=== PATIENT | female | born 1955 | race Caucasian/White ===

== ENCOUNTER 2023-07-19 05:55 | Inpatient (IN) | payer MEDICARE, OTHER, SELFPAY ==
[2023-07-16 10:03] LABS: Hemoglobin 14.9 g/dL (12.0-16.0); Mean Corp Hgb Conc. 33.9 g/dL (33.0-37.0); Mean Corpuscular Hgb 30.1 pg (27.0-31.0); Mean Corpuscular Volume 88.9 fL (81.0-99.0); Mean Platelet Volume 9.9 fL (7.4-10.4); Platelet Count 263 10^3/uL (130-400); Red Blood Cell Count 4.95 10^6/uL (4.20-5.40); White Blood Cell Count 7.1 10^3/uL (4.8-10.8)
[2023-07-16 10:32] LABS: ALT (SGPT) 16 U/L (0-35); AST (SGOT) 25 U/L (14-36); Albumin 4.2 g/dl (3.5-5.0); Alkaline Phosphatase 101 U/L (38-126); Blood Urea Nitrogen 17 mg/dl (7-17); Calcium 9.3 mg/dl (8.4-10.2); Carbon Dioxide 28 mmol/L (22-30); Chloride 105 mmol/L (98-107); Glucose 102 mg/dl (70-99); INR 1.01; PT 13.1 Sec (11.4-14.6); Potassium 3.9 mmol/L (3.5-5.1); Sodium 140 mmol/L (135-145); Total Bilirubin 0.7 mg/dl (0.2-1.3); Total Protein 7.3 g/dl (6.3-8.2); eGFR > 60.00
[2023-07-16 10:33] LABS: APTT 28.2 Sec (23.4-35.0)
[2023-07-16 12:01] LABS: Glycohemoglobin (HgbA1c) 5.9 % (4.0-5.6)
[2023-07-16 13:22] VITALS: BMI 30.5
[2023-07-19] VITALS (16 sets, daily range): BP systolic 10–154; BP diastolic 57–98; BMI 30.5
[2023-07-19] MEDS: ENTEREG 12 MG PO (06:31)
[2023-07-19] MEDS: TYLENOL 1000 MG PO (06:31)
[2023-07-19] MEDS: NORMOSOL-R 1000 IV (06:32)
[2023-07-19] MEDS: NEURONTIN 600 MG PO (06:32)
[2023-07-19] MEDS: HEPARIN 5000 UNITS SC (06:32)
[2023-07-19] MEDS: INVANZ 60 MG IV (07:27)
--- NOTE | 2023-07-19 12:35 | W.IMMPOSTOP ---
Addendum entered and electronically signed by Richard Ambriz MD 07/19/23 17:29:
Correction: right stent and one left stent removed at end of case.
Addendum entered and electronically signed by Richard Ambriz MD 07/19/23 13:04:
Consulting hospitalist for medical management.
Addendum entered and electronically signed by Richard Ambriz MD 07/19/23 13:03:
Patient's updated by me in waiting area.
Original Note:
Surgical Immed Post Op Note
-
Primary Surgeon: Lenin Ambriz MD
Assisting Surgeon: ULISES Perea; ULISES Kessler
Pre-op Diagnosis: 1) colostomy 2) history diverticulitis
Post-op Diagnosis: same
Procedure Performed: 1) robotic takedown colostomy 2) partial proctectomy (upper rectum) 3) flexible sigmoidoscopy
Anesthesia Type: general plus local
Specimen / Cultures: 1) colostomy 2) upper rectum
Estimated Blood Loss: 300 cc
Complications: no immediate
Operative Findings: 1) 2 left ureters 2) pelvic adhesions 3) narrow upper rectum
#19 Gurmeet in pelvis.
Shaw, ureteral stents (3), ureteral ICG by Dr. Kim. Right stent removed at end of case.
Will send to med surg.
[2023-07-19 13:14] LABS: % Basophils 0.3 % (0-2); % Immature Granulocytes 0.6 % (0-0.5); % Monocytes 1.7 % (1.7-9.3); % Neutrophils 89.4 % (42.2-75.2); Absolute Basophils 0.1 10^3/uL (0-0.2); Absolute Immature Granulocytes 0.1 10^3/uL (0-0.05); Absolute Lymphocytes 1.5 10^3/uL (1.2-3.4); Absolute Monocytes 0.3 10^3/uL (0.1-0.6); Hematocrit 39.3 % (37.0-47.0); Hemoglobin 13.8 g/dL (12.0-16.0); Mean Corp Hgb Conc. 35.1 g/dL (33.0-37.0); Mean Corpuscular Hgb 30.7 pg (27.0-31.0); Mean Corpuscular Volume 87.3 fL (81.0-99.0); Mean Platelet Volume 9.5 fL (7.4-10.4); Nucleated Red Blood Cells % 0 %; Platelet Count 259 10^3/uL (130-400); Red Cell Dist. Width 13.2 % (11.5-14.5); White Blood Cell Count 19.1 10^3/uL (4.8-10.8)
[2023-07-19 13:31] LABS: Blood Urea Nitrogen 10 mg/dl (7-17); Calcium 7.8 mg/dl (8.4-10.2); Carbon Dioxide 27 mmol/L (22-30); Chloride 105 mmol/L (98-107); Estimated Creatinine Clearance 73 ml/min; Glucose 152 mg/dl (70-99); Magnesium 2.3 mg/dl (1.6-2.3); Potassium 3.5 mmol/L (3.5-5.1); Sodium 138 mmol/L (135-145); eGFR > 60.00
--- NOTE | 2023-07-19 13:39 | CON.HOSP ---
Family Physician
-
Family Physician: Devaughn Valenzuela, DO
Chief Complaint
-
Management of medical problems
History of Present Illness
Patient is a 68-year-old female with past medical history of perforated diverticulitis s/p Romana resection in Dec 31, anxiety, essential hypertension, hyperlipidemia, hypothyroidism, currently treated infection, tubal ligation was brought in
electively for reversal of colostomy. Patient have an uneventful surgery and postoperatively hospitalist team were consulted for medical management. Postoperatively patient was sedated from anesthesia/pain medication and was not able to provide
any information. Information has been gathered from chart review. Patient apparently had an emergent proctosigmoidectomy/Romana resection in December 31 for perforated sigmoid diverticulitis. Patient had some problem of chronic constipation and
some abdominal pain although overall interim course remained uncomplicated. Patient was brought in today for elective reversal of colostomy by colorectal surgeon.
Medical History
Past Medical History
Past Medical History: Reports Other
Additional Past Medical History:
perforated diverticulitis s/p Romana resection in Dec 31, anxiety, essential hypertension, hyperlipidemia, hypothyroidism, currently treated infection, tubal ligation
Past Surgical History: Reports Other
Social History
Unable to obtain full social history at this time due to: Other (From chart review)
Tobacco: Non-smoker
Alcohol: None
Family History
Family History: Unable to Obtain
Allergies / Home Medications
Allergies reflects when Allergies were last updated in [facility].
Home Medications with original date entered in [facility]
Allergy/Medication List:
Allergies
Allergy/AdvReac Type Severity Reaction Status Date / Time
amoxicillin Allergy Unknown Verified 07/16/23 15:53
Beta-Blockers Allergy Swelling Verified 07/19/23 06:05
(Beta-Adrenergic Bloc
Home Medications
Bifidobacterium infantis 4 mg capsule (Align) 4 mg PO DAILY Supplement 12/28/22
Fish Oil 2 cap PO HS Supplement 12/28/22
Stool Softener 1 tab PO BID Constipation 12/28/22
alprazolam 1 mg tablet 1 mg PO TID PRN anxiety 12/28/22
amlodipine 10 mg tablet 10 mg PO DAILY Blood Pressure 12/28/22
aspirin 81 mg tablet,delayed release 81 mg PO DAILY Blood Clot Prevention/Tx 12/28/22
atorvastatin 10 mg tablet 10 mg PO HS High Cholesterol 12/28/22
coenzyme Q10 200 mg capsule (Co Q-10) 200 mg PO HS Supplement 12/28/22
folic acid 800 mcg tablet 0.8 mg PO DAILY Supplement 12/28/22
indapamide 1.25 mg tablet 1.25 mg PO DAILY Blood Pressure 12/28/22
levothyroxine 75 mcg tablet 75 mcg PO DAILY Thyroid 12/28/22
methylphenidate HCl 20 mg tablet 20 mg PO BID PRN focus 12/28/22
metronidazole 500 mg tablet 500 mg PO .1400.1500.0 07/16/23
neomycin 500 mg tablet 1,000 mg PO .1400.1500.0 07/16/23
Review of Systems
-
Unable to obtain full review of systems at this time due to: Patient Non-verbal (Sedated )
Physical Exam
Vital Signs
Vital Signs
Temp Pulse Resp BP Pulse Ox
98.1 F 83 11 100/59 96
07/19/23 12:52 07/19/23 13:15 07/19/23 13:15 07/19/23 13:00 07/19/23 13:15
Physical Exam
General: Comfortable; Negative Respiratory Distress
HEENT: Oxygen
Respiratory: Clear
Cardiac: S1/S2 and Regular Rhythm; Negative Tachycardia or Murmur
GI: Soft and Other (Right flank BENY drain, LUQ dressing in place); Negative Normal Bowel Sounds
Musculoskeletal: No Edema
Neuro: Negative Awake, Alert or Oriented
Laboratory Results
-
Laboratory Results
07/19/23 13:08
07/19/23 13:08
PT 13.1 Sec (11.4-14.6) 07/16/23 09:26
INR 1.01 07/16/23 09:26
APTT 28.2 Sec (23.4-35.0) 07/16/23 09:26
Total Bilirubin 0.7 mg/dl (0.2-1.3) 07/16/23 09:
AST 25 U/L (14-36) 07/16/23 09:
ALT 16 U/L (0-35) 07/16/23 09:26
Alkaline Phosphatase 101 U/L (38-126) 07/16/23 09:26
Impression / Plan
-
1. s/p revesal of colostomy
h/o perforated diverticulitis s/p Lima resection in Dec 31
-patient sedated on post op eval from anesthesia/pain meds
-Abd exam - absent bowel sounds, Right flank BENY drain in place, left UQ dressing at previous colostomy site
-maintain NPO
-Pain meds/IVF/anti-emetics ordered
-Further post op care per CRS
2. Essential HTN
-BP soft and will hold meds for now
-May need IVF bolus if SBP < 100, continue monitoring
3. Leukocytosis w/o fever
- possibly reactive, got pre-op ertapenem,
- if episode spiking high-grade fever will require blood culture/abx
4. Anx/depression
-Continue back on Xanax 1 mg 3 times daily, will be judicious with use as patient currently sedated
5. Hypothyroidism
-Maintain on levothyroxine, once cleared to take meds by surgical team
DVT PPX - heparin subq from AM
Full code
Total time spent : 78 mins
I personally saw and examined the patient.
I have reviewed all diagnostic interpretations and treatment plans as written.
Time includes patient management by me, time spent at the patients bedside, time to review lab and imaging results, discussing patient care, documentation in the medical record, and time spent with the family or caregiver and discussing care plan
with RN/Consultants.
--- NOTE | 2023-07-19 13:46 | SUR.PHASEI ---
patient in pacu at 1252 - arrived sedate and remains sedate at this time, unresponsive to voice or tactile stimuli,. vss, labs sent and results to Dr Ambriz - no treatment at this time.
[2023-07-19] MEDS: TORADOL 10 MG IV ×3 (14:31→23:18)
--- NOTE | 2023-07-19 15:49 | PTCARENOTE ---
Received patient from PACU in bed; Patient currently on 2L nasal cannula; IVF infusing; Surgical site, drain, and jones assessed with SMT TECHNICIAN; Patient drowsy - arouses to voice, able to answer questions; Patient oriented to self, date, and place;
Denies pain at this current moment; Spouse at bedside; Call birch within reach; Patient and spouse oriented to unit and call birch use; Bed in lowest position, wheels locked; Safety maintained
[2023-07-19] MEDS: TYLENOL PO (16:12)
[2023-07-19] MEDS: D5LR 1000 IV ×2 (16:13→23:17)
[2023-07-19] MEDS: MORPHINE SULFATE 2 MG IV ×2 (19:34→23:18)
[2023-07-19] MEDS: ZOFRAN 4 MG IV (19:35)
[2023-07-19] MEDS: TYLENOL 650 MG PO ×2 (19:36→23:20)
[2023-07-19] MEDS: LIPITOR 10 MG PO (21:21)
[2023-07-20] VITALS (8 sets, daily range): BP systolic 94–126; BP diastolic 43–68; PULSE 89; O2SAT 96; BMI 30.6
[2023-07-20] MEDS: MORPHINE SULFATE 2 MG IV ×2 (03:58→09:49)
[2023-07-20] MEDS: TYLENOL 650 MG PO ×6 (03:58→23:40)
[2023-07-20] MEDS: ZOFRAN 4 MG IV (03:58)
[2023-07-20 06:07] LABS: % Basophils 0.1 % (0-2); % Immature Granulocytes 0.5 % (0-0.5); % Lymphocytes 11.2 % (20.5-51.1); % Monocytes 6.6 % (1.7-9.3); % Neutrophils 81.6 % (42.2-75.2); Absolute Immature Granulocytes 0.1 10^3/uL (0-0.05); Absolute Lymphocytes 1.8 10^3/uL (1.2-3.4); Absolute Monocytes 1.1 10^3/uL (0.1-0.6); Hematocrit 34.3 % (37.0-47.0); Hemoglobin 11.6 g/dL (12.0-16.0); Mean Corp Hgb Conc. 33.8 g/dL (33.0-37.0); Mean Corpuscular Hgb 29.9 pg (27.0-31.0); Mean Corpuscular Volume 88.4 fL (81.0-99.0); Nucleated Red Blood Cells % 0 %; Platelet Count 221 10^3/uL (130-400); Red Blood Cell Count 3.88 10^6/uL (4.20-5.40); Red Cell Dist. Width 13.4 % (11.5-14.5)
[2023-07-20] MEDS: TORADOL 10 MG IV ×4 (06:08→23:41)
[2023-07-20] MEDS: SYNTHROID 75 MCG PO (06:09)
[2023-07-20 06:25] LABS: Blood Urea Nitrogen 9 mg/dl (7-17); Calcium 8.3 mg/dl (8.4-10.2); Carbon Dioxide 30 mmol/L (22-30); Chloride 103 mmol/L (98-107); Estimated Creatinine Clearance 84 ml/min; Glucose 130 mg/dl (70-99); Magnesium 2.4 mg/dl (1.6-2.3); Potassium 3.9 mmol/L (3.5-5.1); Sodium 140 mmol/L (135-145); eGFR > 60.00
[2023-07-20 07:13] LABS: Hepatitis C Antibody Negative (Negative)
[2023-07-20] MEDS: ENTEREG 12 MG PO ×2 (08:24→19:49)
[2023-07-20] MEDS: HEPARIN 5000 UNITS SC ×2 (08:24→19:49)
[2023-07-20] MEDS: PROTONIX 40 MG PO (08:24)
[2023-07-20] MEDS: ASPIR LOW (ENTERIC COATED) 81 MG PO (08:24)
[2023-07-20] MEDS: LOZOL 1.25 MG PO (08:26)
[2023-07-20] MEDS: NORVASC 10 MG PO (08:31)
[2023-07-20 09:46] LABS: Glucose - Point of Care 131 mg/dl (70-99)
[2023-07-20] MEDS: D5LR 1000 IV (09:57)
--- NOTE | 2023-07-20 10:10 | W.PN.CRS1 ---
Addendum entered and electronically signed by Richard Ambriz MD 07/20/23 14:31:
I saw and examined the patient.
The PA's note was reviewed and I agree with the note.
Comment:
Seen in a.m. with PA.
Admits to incisional discomfort. No nausea.
Vitals reasonable. White count 16. Hemoglobin 11.6. Electrolytes reasonable.
Abdomen mildly distended. Incisions clean dry and intact. BENY with serosanguineous output.
Trial clears.
Out of bed.
Jones until tomorrow morning.
Lovenox.
Original Note:
Today's Communication / Plan
-
clears
lovenox
continue jones until tomorrow
Assessment/Plan
-
POD#1 1) robotic takedown colostomy 2) partial proctectomy (upper rectum) 3) flexible sigmoidoscopy
1. Vital signs normal.
2. WBC 16.0, expected post surgery. Trend.
3. Lovenox for DVT prophylaxis. TEDS/SCDS in place.
4. Stent #2 removed at bedside. Continue jones until tomorrow AM.
5. OOB with PT.
6. Pain control: Tylenol/Toradol standing, Morphine PRN.
7. Advance to a clear liquid diet.
8. OR pathology pending.
9. Continue BENY drain until discharge.
Subjective Data
Subjective Data
Date of Service: July 20, 2023
Patient states she has no nausea or vomiting. Her pain is controlled. She denies nausea or vomiting. She has no complaints.
Objective Data
-
Vital Signs
Temp Pulse Resp BP Pulse Ox
98.7 F 74 16 125/65 94
07/20/23 07:30 07/20/23 08:31 07/20/23 07:30 07/20/23 08:31 07/20/23 07:30
Intake & Output
07/19/23 07/20/23 07/21/23
06:59 06:59 06:59
Intake Total 350 / 350 1200 / 1200
Output Total 385 / 385 380 / 380
Balance -35 / -35 820 / 820
Intake:
IV fluids (Total) 350 / 350 1200 / 1200
normosol 350 / 350
Output:
Drain Output (Total)
Abdomen
Dl-Ramey
Urine, Jones 375 / 375 350 / 350
Lab Results
07/20/23 05:07
07/20/23 05:07
Physical Exam
-
General: No Acute Distress and AOx3
Abdomen: Soft, Non Distended and Non Tender
Skin: Warm and Dry
Incision: Clear, Dry, Intact
--- NOTE | 2023-07-20 12:16 | W.PN.HOSP.TC ---
Today's Communication/Plan
-
diet per CRS
resume home meds
Assessment / Plan
Assessment / Plan
1. s/p revesal of colostomy
�� h/o perforated diverticulitis s/p Lima resection in Dec 31
-Further post op care per CRS
-BS minimally present, Diet per CRS
2. Essential HTN
-BP improved, continue norvasc/indapamide with holding parameter
3. Leukocytosis w/o fever
- possibly reactive, got pre-op ertapenem,
- if episode spiking high-grade fever will require blood culture/abx�
4. Anx/depression
-Continue back on Xanax 1 mg 3 times daily
5. Hypothyroidism
-Maintain on levothyroxine
�DVT PPX - heparin subq
Full code
Anticipated Discharge: 24 - 48 hours
Subjective/Interval History
-
Date of Service: July 20, 2023
Resting comfortably in bed
Denies of any problems overnight
Objective Data
-
Labs:
Laboratory Results
07/20/23
05:07
WBC 16.0 H
Hgb 11.6 L
Hct 34.3 L
Plt Count 221
Sodium 140
Potassium 3.9
Chloride 103
Carbon Dioxide 30
BUN 9
Creatinine 0.7
Glucose 130 H
Calcium 8.3 L
Vital Signs:
Vital Signs
Temp Pulse Resp BP Pulse Ox
98.7 F 74 16 125/65 94
07/20/23 07:30 07/20/23 08:31 07/20/23 07:30 07/20/23 08:31 07/20/23 07:30
I&O
07/19/23 07/20/23 07/21/23
06:59 06:59 06:59
Intake Total 350 / 350 1200 / 1200
Output Total 385 / 385 380 / 380
Balance -35 / -35 820 / 820
Review of Systems
-
Respiratory: Reports No Symptoms
Cardiac: Reports No Symptoms
Abdomen/GI: Reports Abdominal Pain; Denies Nausea or Vomiting
Physical Exam
-
General: Negative Appears in Distress
Respiratory: Clear to Auscultation
Cardiac: Regular Rhythm and S1/S2; Negative Murmur
GI: Soft, Nontender and Other (LUQ dressing in place, midline surgical scar, right flank BENY drain in place)
Neuro: Awake, Alert and No Motor Deficits
Psych: Calm
--- NOTE | 2023-07-20 13:46 | CM ---
Initial assessment completed with patient who lives with her in a 2 story condo with B/B on 1st floor, no steps to enter, Was independent [employer], drove, no DME or O2 in home, POA is . , son and friend are support system. Patient
has been treated for anxiety and depression with a psychologist off and on for years. No inpatient psychiatric hospitalizations. Pharmacy is [facility] in [place] and PCP is Dr. Devaughn Valenzuela in [place], [place]. Anticipate no needs at discharge,
patient will have friend stay with her as well as her .
[2023-07-20] MEDS: XANAX 1 MG PO ×2 (13:48→19:50)
[2023-07-20] MEDS: LOVENOX 40 MG SC (17:05)
[2023-07-20] MEDS: D5LR IV (19:50)
[2023-07-20] MEDS: LIPITOR 10 MG PO (20:01)
[2023-07-21] MEDS: TYLENOL 650 MG PO ×5 (03:16→19:46)
[2023-07-21] MEDS: XANAX 1 MG PO ×3 (03:16→19:50)
[2023-07-21] MEDS: TORADOL 10 MG IV ×3 (05:56→16:40)
[2023-07-21] MEDS: D5LR IV ×2 (05:56→13:14)
[2023-07-21] MEDS: SYNTHROID 75 MCG PO (05:57)
[2023-07-21 06:00] VITALS: BMI 29.8
[2023-07-21 06:13] LABS: % Basophils 0.3 % (0-2); % Eosinophils 0.7 % (0-6); % Immature Granulocytes 0.4 % (0-0.5); % Lymphocytes 26.2 % (20.5-51.1); % Monocytes 5.4 % (1.7-9.3); Absolute Eosinophils 0.1 10^3/uL (0-0.7); Absolute Immature Granulocytes 0.1 10^3/uL (0-0.05); Absolute Lymphocytes 3.1 10^3/uL (1.2-3.4); Absolute Monocytes 0.6 10^3/uL (0.1-0.6); Absolute Neutrophils 7.8 10^3/uL (1.4-6.5); Hematocrit 32.8 % (37.0-47.0); Mean Corp Hgb Conc. 33.5 g/dL (33.0-37.0); Mean Corpuscular Hgb 30.3 pg (27.0-31.0); Mean Corpuscular Volume 90.4 fL (81.0-99.0); Mean Platelet Volume 10.2 fL (7.4-10.4); Nucleated Red Blood Cells % 0 %; Platelet Count 213 10^3/uL (130-400); Red Blood Cell Count 3.63 10^6/uL (4.20-5.40); Red Cell Dist. Width 13.5 % (11.5-14.5); White Blood Cell Count 11.7 10^3/uL (4.8-10.8)
[2023-07-21 06:40] LABS: Blood Urea Nitrogen 7 mg/dl (7-17); Calcium 8.4 mg/dl (8.4-10.2); Carbon Dioxide 29 mmol/L (22-30); Chloride 106 mmol/L (98-107); Estimated Creatinine Clearance 83 ml/min; Glucose 84 mg/dl (70-99); Potassium 3.6 mmol/L (3.5-5.1); Sodium 140 mmol/L (135-145); eGFR > 60.00
[2023-07-21 07:42] VITALS: BP 114/61
[2023-07-21] MEDS: NORVASC 10 MG PO (08:43)
[2023-07-21] MEDS: LOZOL 1.25 MG PO (08:44)
[2023-07-21] MEDS: ENTEREG 12 MG PO ×2 (08:47→19:47)
[2023-07-21] MEDS: PROTONIX 40 MG PO (08:47)
[2023-07-21] MEDS: ASPIR LOW (ENTERIC COATED) 81 MG PO (08:47)
[2023-07-21] MEDS: HEPARIN 5000 UNITS SC (08:48)
--- NOTE | 2023-07-21 12:15 | W.PN.HOSP.TC ---
Today's Communication/Plan
-
continue current medical care
possible discharge in 24-48 hrs
Assessment / Plan
Assessment / Plan
1. s/p revesal of colostomy
�� h/o perforated diverticulitis s/p Lima resection in Dec 31
-Further post op care per CRS
-diet being advanced slowly bt CRS
-BENY drain to be removed at discharge
-No excessive pain/nausea/vomiting issues
-Ambulating without assistance
2. Essential HTN
-BP improved, continue norvasc/indapamide with holding parameter
3. Leukocytosis w/o fever - improving
- possibly reactive, got pre-op ertapenem,
- if episode spiking high-grade fever will require blood culture/abx�
4. Anx/depression
-Continue back on Xanax 1 mg 3 times daily
5. Hypothyroidism
-Maintain on levothyroxine
�DVT PPX - heparin subq
Full code
Anticipated Discharge: Within 24 hours
Subjective/Interval History
-
Date of Service: July 21, 2023
no complains overnight
had BM
denies abd pain/nausea/vomiting
Objective Data
-
Labs:
Laboratory Results
07/21/23
05:20
WBC 11.7 H
Hgb 11.0 L
Hct 32.8 L
Plt Count 213
Sodium 140
Potassium 3.6
Chloride 106
Carbon Dioxide 29
BUN 7
Creatinine 0.7
Glucose 84
Calcium 8.4
Vital Signs:
Vital Signs
Temp Pulse Resp BP Pulse Ox
97.8 F 69 18 114/61 91
07/21/23 07:42 07/21/23 07:42 07/21/23 07:42 07/21/23 08:44 07/21/23 08:45
I&O
07/20/23 07/21/23 07/22/23
06:59 06:59 06:59
Intake Total 350 / 350 2280 / 2280 120 / 120
Output Total 385 / 385 4165 / 4165 250 / 250
Balance -35 / -35 -1885 / -1885 -130 / -130
Review of Systems
-
Respiratory: Reports No Symptoms
Cardiac: Reports No Symptoms
Abdomen/GI: Reports No Symptoms
Physical Exam
-
General: Negative Appears in Distress
Respiratory: Clear to Auscultation
Cardiac: Regular Rhythm and S1/S2; Negative Murmur
GI: Soft, Nontender, Normal Bowel Sounds and Other (LUQ dressing in place, midline surgical scar, right flank BENY drain in place)
Neuro: Awake, Alert and No Motor Deficits
Psych: Calm
--- NOTE | 2023-07-21 12:16 | W.PN.CRS1 ---
Addendum entered and electronically signed by Gideon Benítez MD 07/21/23 12:28:
I saw and examined the patient.
The Reception's note was reviewed and I agree with the note.
Comment: Doing well. Exam appropriate. Bowel function returning. Plan to start LRD, and likely ready for DC when tolerating. Plan to DC drain prior to DC home.
Original Note:
Today's Communication / Plan
-
Advance diet
Assessment/Plan
-
68 yo female with h/o colostomy now POD#1 1) robotic takedown colostomy 2) partial proctectomy (upper rectum) 3) flexible sigmoidoscopy with stent placement by urology
AFVSS
Labs stable with WBC normalizing. Mild post operative anemia present and stable secondary to expected intraop losses and fluid shifts. BENY with light SS fluid.
Voiding since removal of jones
+BM/Flatus today
--Advance to LRD
--Tylenol, Toradol, Oxyocodone for pain
--OOB with PT
--OR pathology pending
--Continue home meds
--Lovenox 40mg SQ for VTE ppx
--Continue BENY drain until discharge.
--Discharge later today vs tomorrow pending diet tolerance and patient course
Subjective Data
Procedure
07/19/23
1. Robotic colostomy takedown.
2. Partial proctectomy (upper rectum).
3. Flexible sigmoidoscopy.
4. Cystoscopy, bilateral ureteral stent
placement for intraoperative ureteral identification.
Subjective Data
Date of Service: July 21, 2023
Patietn seen and examined at bedside with Dr. Benítez. Denies n/v. Tolerated liquids well. Passing flatus/small stool. Voided since catheter removed. Pain well managed.
Objective Data
-
Vital Signs
Temp Pulse Resp BP Pulse Ox
97.8 F 69 18 114/61 91
07/21/23 07:42 07/21/23 07:42 07/21/23 07:42 07/21/23 08:44 07/21/23 08:45
Intake & Output
07/20/23 07/21/23 07/22/23
06:59 06:59 06:59
Intake Total 350 / 350 2280 / 2280 120 / 120
Output Total 385 / 385 4165 / 4165 250 / 250
Balance -35 / -35 -1885 / -1885 -130 / -130
Intake:
Oral fluids 780 / 780 120 / 120
IV fluids (Total) 350 / 350 1500 / 1500
normosol 350 / 350
Output:
Drain Output (Total)
Abdomen
Dl-Ramey
Urine, Jones 375 / 375 4100 / 4100
Urine, Voided 250 / 250
Lab Results
07/21/23 05:20
07/21/23 05:20
Physical Exam
-
General: No Acute Distress and AOx3
Abdomen: Soft, Non Distended and Non Tender
Skin: Warm and Dry
Incision: Clear, Dry, Intact and Other (BENY with SSF)
[2023-07-21 15:10] VITALS: BP 107/58
[2023-07-21] MEDS: LOVENOX 40 MG SC (16:39)
--- NOTE | 2023-07-21 17:12 | PTCARENOTE ---
Addendum entered by Emily Albert RN 07/21/23 17:55:
When TT with Dr. De Adna he did understand per pharmacy that pt received both Lovenox and Heparin toady (yesterday) per my and his discussion and again would receive Heparin at 2000 after receiving Lovenox at 1800, so pharmacy called and followed up
with him to clarify that he still would like Heparin administered. All is now clarified. New orders. Not administering Heparin, stopping. Will give Lovenox only starting tomorrow. Pharmacy placing incident report.
Original Note:
TT with Dr. De Anda that pt on Lovenox and Heparin, which would they like to continue. Advise to put Lovenox on Hold.
[2023-07-21] MEDS: LIPITOR 10 MG PO (19:50)
[2023-07-21 23:00] VITALS: BP 104/61
[2023-07-22] MEDS: TYLENOL 650 MG PO ×2 (00:05→09:30)
[2023-07-22] MEDS: TORADOL 10 MG IV ×2 (00:05→06:00)
[2023-07-22] MEDS: FLUSH (NSS) 1 FLUSH IV ×2 (00:06→06:00)
[2023-07-22] MEDS: XANAX 1 MG PO ×2 (03:13→09:35)
[2023-07-22] MEDS: TYLENOL PO (03:54)
[2023-07-22] MEDS: SYNTHROID 75 MCG PO (05:59)
[2023-07-22 06:00] VITALS: BMI 29.9
[2023-07-22 07:28] VITALS: BP 103/71
[2023-07-22 08:59] LABS: Blood Urea Nitrogen 14 mg/dl (7-17); Calcium 8.8 mg/dl (8.4-10.2); Carbon Dioxide 32 mmol/L (22-30); Chloride 106 mmol/L (98-107); Estimated Creatinine Clearance 83 ml/min; Glucose 93 mg/dl (70-99); Potassium 3.6 mmol/L (3.5-5.1); Sodium 140 mmol/L (135-145); eGFR > 60.00
[2023-07-22] MEDS: LOZOL 1.25 MG PO (09:29)
[2023-07-22] MEDS: PROTONIX 40 MG PO (09:29)
[2023-07-22] MEDS: ENTEREG 12 MG PO (09:29)
[2023-07-22] MEDS: ASPIR LOW (ENTERIC COATED) 81 MG PO (09:30)
[2023-07-22] MEDS: NORVASC 10 MG PO (09:31)
--- NOTE | 2023-07-22 11:22 | W.PN.HOSP.TC ---
Today's Communication/Plan
-
sign off
discharge home per Surgical team
Assessment / Plan
Assessment / Plan
1. s/p revesal of colostomy
�� h/o perforated diverticulitis s/p Liam resection in Dec 31
-Further post op care per CRS
-diet being advanced slowly bt CRS
-BENY drain to be removed at discharge
-Tolerating LR diet.
-Ambulating without assistance
2. Essential HTN
-BP improved, continue norvasc/indapamide with holding parameter
3. Leukocytosis w/o fever - improving
- possibly reactive, got pre-op ertapenem,
- if episode spiking high-grade fever will require blood culture/abx�
4. Anx/depression
-Continue back on Xanax 1 mg 3 times daily
5. Hypothyroidism
-Maintain on levothyroxine
�DVT PPX - heparin subq
Full code
Medically stable for discharge. No change in home medication from IM service.
Will sign off, thank you for involving us in patient care and call back with any questions.
Anticipated Discharge: Today
Subjective/Interval History
-
Date of Service: July 22, 2023
tolerating diet well
no abd pain./nausea/vomiting
Objective Data
-
Labs:
Laboratory Results
07/22/23
08:21
Sodium 140
Potassium 3.6
Chloride 106
Carbon Dioxide 32 H
BUN 14
Creatinine 0.7
Glucose 93
Calcium 8.8
Vital Signs:
Vital Signs
Temp Pulse Resp BP Pulse Ox
97.9 F 76 14 103/71 94
07/22/23 07:28 07/22/23 07:28 07/22/23 07:28 07/22/23 07:28 07/22/23 07:28
I&O
07/21/23 07/22/23 07/23/23
06:59 06:59 06:59
Intake Total 2280 / 2280 1280 / 1280 360 / 360
Output Total 4165 / 4165 475 / 475
Balance -1885 / -1885 805 / 805 360 / 360
Review of Systems
-
Respiratory: Reports No Symptoms
Cardiac: Reports No Symptoms
Abdomen/GI: Reports No Symptoms
Physical Exam
-
General: Negative Appears in Distress
Respiratory: Clear to Auscultation
Cardiac: Regular Rhythm and S1/S2; Negative Murmur
GI: Soft, Nontender, Normal Bowel Sounds and Other (LUQ dressing in place, midline surgical scar, right flank BENY drain in place)
Neuro: Awake, Alert and No Motor Deficits
Psych: Calm
--- NOTE | 2023-07-22 11:55 | W.PN.GS2 ---
Addendum entered and electronically signed by Gideon Benítez MD 07/22/23 12:27:
I saw and examined the patient.
The Financial Accounting Manager's note was reviewed and I agree with the note.
Comment: No complaints. Exam benign. Robert and drain removed. Wound care instructions discussed with pt and . DC home
Original Note:
Today's Communication / Plan
-
Dispo planning
Assessment / Plan
-
68 yo female with h/o colostomy now POD#3 1) robotic takedown colostomy 2) partial proctectomy (upper rectum) 3) flexible sigmoidoscopy with stent placement by urology
AFVSS
Labs stable
Tolerating diet with +BM/Flatus. Voiding.
--Continue LRD
--Tylenol, Toradol, Oxycodone for pain
--OOB with PT, cleared for home
--OR pathology pending
--Continue home meds
--Lovenox 40mg SQ for VTE ppx
--BENY and Robert removed
--Discharge to home
Subjective Data
-
Date of Service: July 22, 2023
Patient seen and examined at bedside with Dr. Benítez. Denies n/v. Tolerating diet. Eager to return home. Pain is well managed.
Objective Data
-
Intake and Output
07/21/23 07/22/23 07/23/23
06:59 06:59 06:59
Intake Total 2280 / 2280 1280 / 1280 360 / 360
Output Total 4165 / 4165 475 / 475
Balance -1885 / -1885 805 / 805 360 / 360
Intake:
Oral fluids 780 / 780 1280 / 1280 360 / 360
IV fluids (Total) 1500 / 1500
Output:
Drain Output (Total) 65 / 65 25 / 25
Héctor 65 / 65
Urine, Shaw 4100 / 4100
Urine, Voided 450 / 450
Other:
Number of approximated SMALL 3
amounts of urine
Number of approximated MODERATE 3
amounts of urine
Number of approximated LARGE 2
amounts of urine
Number of unmeasured liquid
stools
Rectum 2 1
Vital Signs
Temp Pulse Resp BP Pulse Ox
97.9 F 76 14 103/71 94
07/22/23 07:28 07/22/23 07:28 07/22/23 07:28 07/22/23 07:28 07/22/23 07:28
Lab Results
07/21/23 05:20
07/22/23 08:21
Calcium 8.8 mg/dl (8.4-10.2) 07/22/23 08:21
Magnesium 2.4 mg/dl (1.6-2.3) H 07/20/23 05:07
Total Bilirubin 0.7 mg/dl (0.2-1.3) 07/16/23 09:26
AST 25 U/L (14-36) 07/16/23 09:26
ALT 16 U/L (0-35) 07/16/23 09:26
Alkaline Phosphatase 101 U/L (38-126) 07/16/23 09:26
Total Protein 7.3 g/dl (6.3-8.2) 07/16/23 09:26
Albumin 4.2 g/dl (3.5-5.0) 07/16/23 09:26
Physical Exam
-
Gen: NAD
HEENT: NGT clamped
Abd: obese, soft, NT, non-peritoneal. Robert removed, chantelle intact to RUQ incision. BENY with light SSF (removed)
--- NOTE | 2023-07-22 12:45 | W.DCSUMMARY ---
Discharge Summary
Discharge Data
Date of Admission: 07/19/23
Date of Discharge: 07/22/23
-
Pending Results: No
Hospital Course
68 yo female with history of perforated sigmoid diverticulitis status post Romana's resection who presented this admission for colostomy reversal. She underwent a robotic colostomy takedown with partial proctectomy which was done without
complication. BENY drain was left in place post procedure and removed prior to discharge. She was able to have her diet slowly advanced post operatively and well tolerated. She had return of bowel function prior to discharge and good control of pain.
She was discharged to home with spouse with outpatient follow up planned in the coming weeks.
Discharge Plan
-
Patient Disposition: Home (Routine Discharge)
Discharge Diagnosis/Procedures: 1) robotic takedown colostomy 2) partial proctectomy (upper rectum) 3) flexible sigmoidoscopy
Condition: Good
Diet: Low Residue
Activity: No strenuous activity
Additional Activity: No lifting over 10lbs (gallon of milk)
Driving Restrictions: Not until seen by your Dr
Bathing Restrictions: OK to Shower
Wound Care: Allow glue to naturally fall off. Do not pick at incisions.
Cover BENY drain site with 4x4 gauze and tape to protect clothing until it seals in a few days.
Instructions: Low Fiber Diet
Referrals:
Richard Ambriz MD [Active] - in two weeks
Devaughn Valenzuela DO [Family Provider] -
Prescriptions:
New
acetaminophen [acetaminophen] 325 mg tablet
650 mg PO Q4HPRN PRN (Reason: mild pain) Qty: 1 0RF
ibuprofen 200 mg tablet
400 - 600 mg PO Q6HPRN PRN (Reason: moderate pain) Qty: 1 0RF
oxycodone 5 mg tablet
5 mg PO Q4HPRN PRN (Reason: breakthrough/severe pain) Qty: 15 0RF
Continued
atorvastatin 10 mg tablet
10 mg PO HS
alprazolam 1 mg tablet
1 mg PO TID PRN (Reason: anxiety)
Patient Comments:
12/28/2022: last filled 11/08/22, 270 tabs for 90 days from [facility]20[facility]
methylphenidate HCl 20 mg tablet
20 mg PO BID PRN (Reason: focus)
Patient Comments:
12/28/2022: last filled 05/15/22, 60 tabs for 30 days from [facility]
aspirin 81 mg Tablet,Delayed Release (Dr/Ec)
81 mg PO DAILY
levothyroxine 75 mcg tablet
75 mcg PO DAILY
amlodipine 10 mg tablet
10 mg PO DAILY
indapamide 1.25 mg tablet
1.25 mg PO DAILY
folic acid 800 mcg Tablet
0.8 mg PO DAILY
coenzyme Q10 [Co Q-10] 200 mg Capsule
200 mg PO HS
Align 4 mg Capsule
4 mg PO DAILY
Fish Oil
2 cap PO HS
Stool Softener
1 tab PO BID
Discontinued
metronidazole 500 mg Tablet
500 mg PO .
neomycin 500 mg Tablet
1,000 mg PO .0
Rx Instructions:
Pre medication for bowel surgery
Discharge Orders:
Discharge Patient (As Directed); Ordered 07/22/23
Ordered By: Guerline Xie
Discharge Date and Time
Discharge Date/Time: 07/22/23 12:30
--- NOTE | 2023-07-22 14:02 | CM ---
Pt for dc today.
IMM signed and on chart
Pt for dc today with no needs identified.
== END 2023-07-22 12:30 | disposition home or self-care (01) | DRG 333 ==
LOC: 2 SOUTH 05:55
PROVIDERS: Physician Assistant; Urology; ADMITTING PHYSICIAN Surgery; CONSULT PHYSICIAN Hospitalist; FAMILY PHYSICIAN Family Medicine
PROC: 0T788DZ Dilation of Bilateral Ureters with Intraluminal Device, Via Natural or Artificial Opening Endoscopic (ICD-10-PCS; 2023-07-19)
PROC: 0DBP4ZZ Excision of Rectum, Percutaneous Endoscopic Approach (ICD-10-PCS; 2023-07-19)
PROC: 8E0W4CZ Robotic Assisted Procedure of Trunk Region, Percutaneous Endoscopic Approach (ICD-10-PCS; 2023-07-19)
PROC: 0DSN4ZZ Reposition Sigmoid Colon, Percutaneous Endoscopic Approach (ICD-10-PCS; 2023-07-19)
PROC: 0DJD8ZZ Inspection of Lower Intestinal Tract, Via Natural or Artificial Opening Endoscopic (ICD-10-PCS; 2023-07-19)
DX: Z43.3 Encounter for attention to colostomy (principal); D62 Acute posthemorrhagic anemia; Q62.5 Duplication of ureter; D72.829 Elevated white blood cell count, unspecified; K62.89 Other specified diseases of anus and rectum; F41.9 Anxiety disorder, unspecified; F32.A Depression, unspecified; I10 Essential (primary) hypertension; E78.5 Hyperlipidemia, unspecified; E03.9 Hypothyroidism, unspecified; Z87.19 Personal history of other diseases of the digestive system; Z79.82 Long term (current) use of aspirin
CPT/HCPCS: 88304; 88307; 36415; 80048; 80053; 82962; 83036; 83735; 85025; 85027; 85610; 85730; 86803; 86850; 86900; 86901; 97162; 97530; A4300; C1769; J1335

== ENCOUNTER → 2024-08-01 11:09 | Outpatient (REF) | payer MEDICARE, OTHER, SELFPAY | LOC: HWRAD 11:09 | PROVIDERS: ATTENDING PHYSICIAN Internal Medicine Endocrinology, Diabetes & Metabolism; FAMILY PHYSICIAN Family Medicine | DX: E03.9 Hypothyroidism, unspecified (principal); E55.9 Vitamin D deficiency, unspecified; R73.03 Prediabetes; E66.811 Obesity, class 1; I10 Essential (primary) hypertension; Z13.820 Encounter for screening for osteoporosis; Z78.0 Asymptomatic menopausal state | CPT/HCPCS: 77080 ==

== ENCOUNTER → 2024-11-18 10:16 | Outpatient (REF) | payer MEDICARE, OTHER, SELFPAY | LOC: HWWDC 10:16 | PROVIDERS: ATTENDING PHYSICIAN Family Medicine | DX: Z12.31 Encounter for screening mammogram for malignant neoplasm of breast (principal) | CPT/HCPCS: 77063; 77067 ==

== ENCOUNTER → 2025-05-21 07:57 | Outpatient (REF) | payer MEDICARE, OTHER, SELFPAY | LOC: RAD 07:57 | PROVIDERS: ATTENDING PHYSICIAN Internal Medicine Endocrinology, Diabetes & Metabolism; FAMILY PHYSICIAN Family Medicine | DX: E03.9 Hypothyroidism, unspecified (principal); E55.9 Vitamin D deficiency, unspecified; R73.03 Prediabetes; E66.811 Obesity, class 1; I10 Essential (primary) hypertension; Z13.820 Encounter for screening for osteoporosis | CPT/HCPCS: 76536 ==